=== PATIENT | female | born 1980 | race Caucasian/White ===

== ENCOUNTER 2016-08-30 19:50 | Emergency (ER) | payer MEDICAID ==
[~2016-08-30] VITALS: Ht 154.9 cm; Wt 74.8 kg
[2016-08-30 20:01] VITALS: BP 145/90
--- NOTE | 2016-08-30 20:45 | NUR ---
TO ER BED 6
--- NOTE | 2016-08-30 20:50 | NUR ---
35/F CHEST PAIN , AND DIFF OF BREATHING STARTED TODAY WHILE DRINKING WATER . PATIENT STATES PAIN OF 8/10 AT THIS TIME; VSS; PATIENT POSITIONED FOR COMFORT; HOB ELEVATED; BEDRAILS UP X2; BED DOWN. ER MD MADE AWARE OF PT STATUS.
--- NOTE | 2016-08-30 21:05 | NUR ---
DR. LOPEZ AT BEDSIDE EVALUATING PT.
--- NOTE | 2016-08-30 21:55 | NUR ---
DR. LOPEZ AT BEDSIDE EVALUATING PT.
--- NOTE | 2016-08-30 22:00 | NUR ---
DR. LOPEZ AWARE PT HAS NOT PROVIDED URINE.
[2016-08-30 22:05] VITALS: BP 135/86
--- NOTE | 2016-08-30 22:05 | NUR ---
Patient discharged with v/s stable. Written and verbal after care instructions given and explained. Patient alert, oriented and verbalized understanding of instructions. Ambulatory with steady gait. All questions addressed prior to discharge. ID band removed. Patient advised to follow up with PMD. Rx of PRILOSEC 20MG DELAYED RELEASE CAPSULE 1 CAPSULE ONCE A DAY given. Patient educated on indication of medication including possible reaction and side effects. Opportunity to ask questions provided and answered.
== END 2016-08-30 22:05 | disposition home or self-care (01) ==
LOC: MED 19:50
DX: K21.9 Gastro-esophageal reflux disease without esophagitis (principal); F15.10 Other stimulant abuse, uncomplicated; F10.20 Alcohol dependence, uncomplicated; R05 Cough; Y90.9 Presence of alcohol in blood, level not specified
CPT/HCPCS: 36415; 71010; 80053; 83690; 84484; 85025; 93005; 99285; Q0092